=== PATIENT | female | born 1945 | race Caucasian/White ===

== ENCOUNTER → 2016-10-26 | Outpatient (CLI) | payer MEDICARE, BC ==
[~2016-10-26] MED LIST: ASPI-914 PO; CLON0.5T4 PO; FISH1CAP2 PO; TRAM50TA53 PO; VIT1CAPS21 PO; VITA1CAP PO
[2016-10-26 13:01] LABS: BASOPHILS % (AUTO) 0.7 % (0-2); EOSINOPHILS # (AUTO) 0.1 T/MM3 (0-0.5); EOSINOPHILS % (AUTO) 2.5 % (0-4); HGB - HEMOGLOBIN 14.3 GM/DL (12-16); IMMATURE GRANULOCYTE # (AUTO) 0.01 T/MM3 (0.00-0.03); IMMATURE GRANULOCYTE % (AUTO) 0.2 % (0.0-0.5); LYMPHOCYTES % (AUTO) 22.9 % (23-45); MEAN CORPUSCULAR HGB 31.6 UUG (26-34); MEAN CORPUSCULAR HGB CONC(MCHC 33.3 GM/DL (31-37); MEAN CORPUSCULAR VOLUME 94.9 UM3 (80-100); MEAN PLATELET VOLUME 9.6 UM3 (9.4-12.4); MONOCYTES # (AUTO) 0.4 T/MM3 (0-0.8); MONOCYTES % (AUTO) 8.1 % (0-9.0); NEUTROPHILS #(AUTO)-ABSOLUTE 2.8 T/MM3 (1.8-7.7); NEUTROPHILS % (AUTO) 65.6 % (33-66); RED BLOOD COUNT 4.53 M/MM3 (4.00-5.20); WBC - WHITE BLOOD COUNT 4.3 T/MM3 (4.5-11.0)
[2016-10-26 13:05] LABS: ALBUMIN 4.8 G/DL (3.5-5.0); ALBUMIN/GLOBULIN RATIO 1.5 RATIO (1.1-2.2); ALKALINE PHOSPHATASE 70 U/L (38-126); ALT (SGPT) 44 U/L (9-52); ANION GAP 15 MEQ/L (5-15); AST (SGOT) 37 U/L (14-36); BUN/CREATININE RATIO 19 RATIO (6-26); CALCIUM 10.4 MG/DL (8.4-10.2); CHLORIDE 101 MEQ/L (98-107); CO2 - CARBON DIOXIDE 26 MEQ/L (22-30); GLOMERULAR FILTRATION RATE 54; GLUCOSE 109 MG/DL (65-110); SODIUM 142 MEQ/L (134-144)
[2016-10-26 13:55] LABS: CA 27-29 CALCULATED 33.81 U/ML (0-37.7)
== END ==
LOC: LAB 12:33
PROVIDERS: ATTEND Internal Medicine Medical Oncology
DX: C50.412 Malignant neoplasm of upper-outer quadrant of left female breast (principal)
CPT/HCPCS: 36415; 80053; 82378; 85025; 86300